=== PATIENT | female | born 1995 | race Hispanic/Latino ===

== ENCOUNTER 2017-03-30 08:49 | Emergency (ER) | payer SELFPAY ==
[~2017-03-30] VITALS: Ht 147.3 cm; Wt 45.5 kg
[~2017-03-30 08:49] MED LIST: LEVO750T9 PO; PREN1TAB19 PO
[2017-03-30 08:50] VITALS: BP 132/85; PULSE 108; RESP 20; O2SAT 99
--- NOTE | 2017-03-30 08:54 | ED.REPORT ---
HPI-Extremity Problem Upper Date of Service Mar 30, 2017 ED Provider: Francisco Javier Shen MD A 22 year old female with no pertinent medical history presents to the ED complaining of left fourth finger pain. The pt slammed her finger in a door thirty minutes prior to arrival. No other fingers were injured and the pt has no additional complaints at this time. Nursing Notes Stated Complaint: POSS LEFT FINGER BROKEN Chief Complaint: Extremity Trauma Nursing Notes Reviewed: Yes Allergies: Coded Allergies: No Known Allergies (Verified , 12/18/12) Scheduled Levofloxacin (Levaquin) 750 Mg Tablet 750 MG PO DAILY Scheduled PRN Hydrocodone-Acetaminophen 5-325 mg (Hydrocodone-Acetaminophen 5-325 mg) 1 Each Tablet 1 TABLET PO Q4H PRN PRN For Pain Ibuprofen (Ibuprofen) 800 Mg Tablet 800 MG PO TID PRN PRN For Pain Miscellaneous Medications Vit/Iron Fumarate/FA ( Vitamins Tablet) 1 Each Tablet 1 EACH PO General Time Seen by MD: 08:52 Chief Complaint Finger injury left 4 Hx Obtained From: Patient Arrived By: Walk-in Onset Occurred: 31 - 45 minutes ago Symptom Duration: Since onset Recent Healthcare: No recent doctor visit, No recent hospitalization Similar Sx Previous: No Past Medical History Past Medical History Pyelonephritis Past Surgical History Reports: Smoking History Never Smoker Social History Alcohol Use: "Social" Drug Use: THC Other Social History: Good social support, Ambulatory Status Independent Review of Systems Musculoskeletal: Reports: Extremity pain (left fourth finger) Skin: Denies Rash Complete sys rev & neg: except as marked. Respiratory: Denies: Non-productive cough, Shortness of breath Cardiovascular: Denies: Chest pain GI: Denies: Abdominal pain Physical Exam Initial Vital Signs Vital Signs (First) Date Time Temp Pulse Resp B/P Pulse Ox O2 Delivery O2 Flow Rate FiO2 03/30/17 08:50 36.6 108 20 132/85 99 Initial VS: Reviewed General/Constitutional: Awake, Alert Behavior: Positive: Tearful Neck: Atraumatic, Supple, Full range of motion Respiratory / Chest: Atraumatic, Breath sounds NL, Breath sounds = bilat, No respiratory distress Cardiovascular: Heart rate NL, Regular rhythm, Heart sounds NL Upper Extremity / MS: Atraumatic, Full range of motion Wrist / Hand: Neurologic intact, Vascular intact left fourth finger with gross deformity at distal phalanx unable to flex finger possibly due to pain Skin: Atraumatic, Color NL, No rash, Warm, Dry Neurologic: Oriented X3, Speech NL, No motor deficits, No sensory deficits Head / Eyes: Atraumatic, Normocephalic, PERRL, EOMI ENT: Atraumatic, Airway patent, Mucous membranes moist Abdomen: Atraumatic, Soft, Non-tender Back: Atraumatic, Full range of motion Lower Extremity / Pelvis / MS: Atraumatic, Full range of motion Psychiatric: Affect NL, Mood NL Interpretation & Diagnostics Finger X-Ray, Left: IMPRESSION: 1. Small fracture of the 4th distal phalanx with extension to the distal interphalangeal joint. Dictated by: Parker Saunders M.D. on 03/30/2017 at 9:49 Approved by: Parker Saunders M.D. on 03/30/2017 at 9:50 Finger X-Ray, Left: IMPRESSION: Small avulsion fracture involves the ulnar base of the fourth distal phalanx, consistent with ulnar collateral ligament injury of the fourth distal interphalangeal joint. Dictated by: Yaakov Magallanes M.D. on 03/30/2017 at 9:26 Approved by: Yaakov Magallanes M.D. on 03/30/2017 at 9:28 Procedures Digital Nerve Block Time: 09:59 Procedure Performed by: ED physician Indication: Other (Reduction) Consent / Setup / Site Prep: Informed consent provided, Consent from patient , Time-out performed, Hand hygiene observed, Stand sterile technique Digit Involved: Ring finger left Digital Block Procedure: Lidocaine 1% Post-Procedure / Complications: Antibiotic oint applied, Dressing applied, No complications, Condition improved, Tolerated procedure well, Patient stable Reduction Finger left fourth finger reduction with improved alignment Time: 09:59 Procedure Performed by: ED physician Consent / Setup / Site Prep: Informed consent provided, Consent from patient, Time-out performed, Pulse oximeter applied, Hand hygiene observed, Stand sterile technique Finger / Joint Involved: DIP, Left 4 Anesthetic Method / Agent: Digital block, Lidocaine 1% Post-Procedure / Complications: NV intact post-procedure, Procedure successful , No complications, Tolerated procedure well, Patient stable Splint Application - Fx Mgt Time: 10:29 Procedure Performed by: ED physician, Plasterer Journeyman, Under my direct supervis Precise Anatomic Location: left fourth finger Type of Immobilization: Dev tape Definitive Fracture Care: Splint Post-Procedure / Complications: Cap refill normal, Post splint vascular nl, Post splint neuro nl, Condition improved, Tolerated procedure well, Patient stable Re-Eval/Medical Decision Med Decision/Clinical Course 22-year-old female presenting with slamming finger in door. Left fourth distal phalanx fracture dislocation. I performed a digital block as above and then a successful reduction. Avulsion fracture suspicious for ligamentous injury. Splinted. I evaluated patient post splint with neurovascular intact though numbness after digital block. She was able to fully flex and extend the left finger. She will follow up with primary doctor in 2-3 days. Return precautions given. Source of Hx: Old records Re-Evaluation/Progress #1: Time of Eval: 09:59 Patient Status: Condition improved Re-Evaluation/Progress Note: Pt rechecked, who is comfortable. Digital block and finger reduction are performed without complication. Re-Evaluation/Progress #2: Time of Eval: 10:29 Patient Status: Condition improved Re-Evaluation/Progress Note: Pt rechecked, who is feeling better. The diagnosis and plan for discharge are discussed. The pt understands and agrees with the plan. All questions are addressed at this time. Counseled Regarding: Diagnosis, Lab results, Need for follow-up, When/why to return to ED Discharge & Departure Impression: Primary Impression: Phalanx, distal fracture of finger Encounter type: initial encounter Finger: ring finger Fracture type: closed Fracture alignment: nondisplaced Laterality: left Qualified Code: S62.665A - Nondisplaced fracture of distal phalanx of left ring finger, initial encounter for closed fracture Additional Impression: Closed dislocation of phalanx of hand Encounter type: initial encounter Qualified Code: S63.259A - Unspecified dislocation of unspecified finger, initial encounter Disposition: Home Discharge Condition All VS Reviewed: Yes Condition: Stable Patient Instructions: Finger Fracture (ED), Splint Care (ED) Additional Instructions: Call today to arrange a follow up appointment with your primary care physician in the next week. Wear the splint until you are seen in follow up. Take 1 to 2 [place] every six hours as needed for severe pain. Do not drink, drive, or consume acetaminophen while taking the [place]. Take ibuprofen as directed for moderate pain. Return to the emergency department if you develop any new or worsening symptoms. Referrals: [facility] Scribe Attestation Portions of this note were transcribed by Christa Calero. I, Dr. Shen personally performed the history, physical exam and medical decision-making; I reviewed and confirmed the accuracy of the information in the transcribed note. Signed by: Larissa Oh, 03/30/17 and 1038. copies to: [facility] Francisco Javier Shen MD Mar 30, 2017 08:54 CHRISTA CALERO Mar 30, 2017 09:02
[2017-03-30] MEDS ORDERED: HYDROcodone-APAP 10-325 mg PO ONE (09:00)
[2017-03-30] MEDS ORDERED: Lidocaine 1% 50 mL Inj NERVEBLOCK ONE (09:45)
--- NOTE | 2017-03-30 09:52 | DRSVH ---
PROCEDURE: X-RAY FINGERS, TWO VIEWS INDICATIONS: L ring finger TECHNIQUE: AP hand, 2 views of the 4th digit acquired. COMPARISON: None. FINDINGS: Bones: There is a small fracture at the ulnar sided base of the 4th distal phalanx extending to the distal interphalangeal joint. Soft tissues: No suspicious soft tissue calcifications. IMPRESSION: 1. Small fracture of the 4th distal phalanx with extension to the distal interphalangeal joint. Dictated by: Parker Saunders M.D. on 03/30/2017 at 9:49 Approved by: Parker Saunders M.D. on 03/30/2017 at 9:50
[2017-03-30] MEDS ORDERED: IBUP800T28 PO (10:11)
[2017-03-30] MEDS ORDERED: HYDR-4003 PO (10:11)
--- NOTE | 2017-03-30 10:30 | DRSVH ---
PROCEDURE: X-RAY FINGERS, TWO VIEWS INDICATIONS: 22 year-old female status post left fourth finger reduction. TECHNIQUE: 3 views of the left fourth finger(s) acquired. COMPARISON: [facility], CR, XR FINGER(S) LT 2VW, 03/30/2017, 9:07. FINDINGS: Bones: There is a small avulsion fracture involving the ulnar base of the fourth distal phalanx. Dis soledad interphalangeal joint is now in anatomic alignment. No suspicious bony lesions. Soft tissues: No suspicious soft tissue calcifications. IMPRESSION: Small avulsion fracture involves the ulnar base of the fourth distal phalanx, consistent with ulnar collateral ligament injury of the fourth distal interphalangeal joint. Dictated by: Yaakov Magallanes M.D. on 03/30/2017 at 9:26 Approved by: Yaakov Magallanes M.D. on 03/30/2017 at 9:28
[2017-03-30 10:49] VITALS: BP 132/85; PULSE 108; RESP 20; O2SAT 99
== END 2017-03-30 10:49 | disposition home or self-care (01) ==
LOC: SED 08:49
DX: S62.635A Displaced fracture of distal phalanx of left ring finger, initial encounter for closed fracture (principal); S63.255A Unspecified dislocation of left ring finger, initial encounter; W23.0XXA Caught, crushed, jammed, or pinched between moving objects, initial encounter; Y92.009 Unspecified place in unspecified non-institutional (private) residence as the place of occurrence of the external cause; Y93.89 Activity, other specified; Y99.8 Other external cause status; Z87.440 Personal history of urinary (tract) infections